=== PATIENT | male | born 1990 | race Caucasian/White ===

== ENCOUNTER 2017-09-06 01:18 | Emergency (ER) | payer SELFPAY ==
[~2017-09-06] VITALS: Ht 180.3 cm; Wt 99.8 kg
--- OUTSIDE RECORDS SUMMARY | 2017-09-06 01:47 | External Medical Summary Rpt | CCD ---
Demographics Preferred Language Swedish Marital Status Unknown Zoroastrian Affiliation Unknown Race Unknown Ethnic Group Unknown Author Author , ADILSON DE ANDA Address Unknown Phone Purpose Continuity of Care Document - through 2016
--- OUTSIDE RECORDS SUMMARY | 2017-09-06 01:47 | External Medical Summary Rpt | CCD ---
Demographics Preferred Language Kinyarwanda Marital Status Unknown Druze Affiliation Unknown Race Unknown Ethnic Group Unknown Author Author , ADILSON DE ANDA Address Unknown Phone Purpose Continuity of Care Document - through 2016
--- OUTSIDE RECORDS SUMMARY | 2017-09-06 01:47 | External Medical Summary Rpt | CCD ---
Author Author [facility] Organization [facility] Address Unknown Phone Unavailable Purpose Continuity of Care Document - through 2016
--- OUTSIDE RECORDS SUMMARY | 2017-09-06 01:48 | External Medical Summary Rpt | CCD ---
Demographics Preferred Language Romansh Marital Status Unknown Spiritism Affiliation Unknown Race Unknown Ethnic Group Unknown Author Author , ADILSON DE ANDA Address Unknown Phone Immunization Unable to retrieve immunization data due to connection failure with Immunization Registry. Please try again later.
--- OUTSIDE RECORDS SUMMARY | 2017-09-06 01:48 | External Medical Summary Rpt | CCD ---
Demographics Preferred Language Greek Marital Status Unknown Worship Affiliation Unknown Race Unknown Ethnic Group Unknown Author Author , ADILSON DE ANDA Address Unknown Phone Immunization Unable to retrieve immunization data due to connection failure with Immunization Registry. Please try again later.
--- NOTE | 2017-09-06 02:18 | Emergency Room Report ---
History of Present Illness Time Seen by [id number] Presenting Problem in Triage Pt arrived:Walked Presenting Problem:PT WORKS IN [employer] AND WAS WORKING WITH [employer] YESTERDAY EVENING WHEN L EYE STARTED FEELING IRRITATED AND HAS GOTTEN WORSE SINCE THEN. LOOKED THIS EVENING AND THINKS THEY SEE SOMETHING IN EYE THEY CANNOT GET OUT. ONLY CLEAR TEAR DRAINAGE NOTED. 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 N Clinical Suspician of Infection? N Mental Status: 1 - Regular (Normal Baseline) Sepsis Risk:Low Sepsis Risk Have you (or family members/close friends) recently traveled outside the [place]? N If Yes, where/when: Have you had exposure to infectious disease within the past month? N TB? Other? Specify: Source patient, RN notes reviewed, family, old records Exam Limitations no limitations Comment fb lt eye over the last 24 hrs with photophbia and reddness Cardiac Chest Pain Chest pain indicative of cardiac No Timing/Duration this evening Severity moderate ALLERGIES Coded Allergies: No Known Allergies (09/06/17) Home Medications Reported Medications No Known Home Medications History Medical History General CAD? No Angina: No DE: No Hypertension? No Hyperlipidemia? No CHF? No DVT? No PE? No COPD? No Asthma? No Anemia? No GERD? No Gastric ulcers? No GI Bleed? No Hernia? No Thyroid Problems? No Hypothyroidism? No CVA? No Seizures? No Diabetes? No Renal Insuffiency? No End Stage Renal Disease? No UTI? No Stones? No BPH? No GB Disease: No Nephritic Syndrome? No Asplenia? No Hepatitis? No Sickle Cell Disease? No Arthritis? No Migraines? No Cataracts? No Glaucoma? No MRSA? No HIV? No TB? No Anxiety? Yes Depression? No Cancer? No More? No Immunization Hx DT/Tetanus < 1 Year Ago Surgical Hx Previous Surgery?Y Dental Surgery Social History Smoking Hx Smoker: Former Smoker Tobacco: No Alcohol Alcohol: No Drugs none Review of Systems All Other Systems Reviewed and Negative Constitutional denies fever Eyes see HPI, drainage, foreign body sensation, photophobia, denies contact lenses ENT denies: ear discharge, epistaxis, throat pain. Respiratory denies cough, denies shortness of breath, denies wheezing Cardiovascular denies chest pain, denies syncope Gastrointestinal denies abdominal pain, denies diarrhea, denies vomiting Genitourinary denies: dysuria, frequency, hesitancy, hematuria. Musculoskeletal denies back pain, denies joint pain, denies joint swelling, denies neck pain Skin denies rash Psychiatric/Neurological denies headache, denies seizure Physical Exam Vital Signs Vital Signs Date Time Temp Pulse Resp B/P Pulse O2 O2 Flow FiO2 Ox Delivery Rate 09/06 125 98.2 106 18 162/103 98 - WBC >12,000 or <4,000 or 10% bands? 2 or more SIRS Criteria Met? B/P:162/103 MAP:122 Creatinine >2.0? UA output<0.5ml/kg/hr for 2 hrs? Platelet count >100,000? Lactate >2.0mmol/1? INR >1.2 or PTT > than 60 sec? Evidence of Organ Dysfunction? Provider documented clinical suspician of infection? N Sepsis Criteria Count: 1 Sepsis Risk: Low Sepsis Risk General Appearance no apparent distress Eye Exam - left eye photophobia, left eye corneal abrasion, bilateral eye PERRL, bilateral eye EOMI Comment small fb unable to remove Ear, Nose, Throat normal ENT inspection Neck supple Respiratory Status No: respiratory distress. 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 No Results/Orders Current Medication Orders Sig/Isis Start time Last Medication Dose Route Stop Time Status Admin Miscellaneous 0 .STK-MED ONE 09/06 125 DC XX Procedures Eye Procedure Eye Procedure Risks/benefits discussed with pt/guardian? Yes Tetracaine Drops Administered left eye Fluorescein Stick(s) Used left eye Slit lamp exam No Eye FB Removal embedded. Eye Irrigated w/ Saline (ccs) 0 Antibiotic Ointment/Drps Admin left eye Departure Departure Time of Disposition 214 Disposition DC Home or Self Care(routine) Clinical Impression Primary Impression: Eye foreign body Qualifiers: Encounter type: initial encounter Laterality: left Qualified Code: T15.92XA - Foreign body on external eye, part unspecified, left eye, initial encounter Condition STABLE Referrals [facility] Patient Instructions DI for Corneal Foreign Body-Eye Additional Instructions use meds as directed Discharge Counseling Counseled pt/family regarding diagnosis, medications/RX, follow up needs Prescriptions Current Visit Scripts No Known Home Medications ED Critical Care Critical Care No at [id number]
[2017-09-06 02:22] VITALS: BP 140/90
== END 2017-09-06 02:25 | disposition home or self-care (01) ==
LOC: ER 01:18
DX: T15.92XA Foreign body on external eye, part unspecified, left eye, initial encounter (principal); Z87.891 Personal history of nicotine dependence